=== PATIENT | female | born 1985 ===

== ENCOUNTER 2019-07-01 09:47 | Day surgery (SDC) | payer MEDICAID ==
[~2019-07-01 09:47] MED LIST: Lactated Ringers 1,000 ML IV SCH; Sodium Chloride 0.9% 10 ML SDV IV PRN; Sodium Chloride 0.9% 10 ML Syringe FLUSH PRN; Sodium Chloride 0.9% 2.5 ML Syringe FLUSH PRN
--- NOTE | 2019-07-01 11:11 | PCM.PREANE ---
Preanesthetic Assessment - Anesthesia/Transfusion/Family Hx Anesthesia History: Prior Anesthesia Without Reaction Other Type of Anesthesia Reaction Comment: Unkown if I had any trouble, no family history of known problems Family History of Anesthesia Reaction: No Transfusion History: No Prior Transfusion(s) - Review of Systems General: No Symptoms Pulmonary: No Symptoms Cardiovascular: No Symptoms Gastrointestinal: No Symptoms Neurological: No Symptoms Other: Reports: None - Physical Assessment Vital Signs: Last Vital Signs Temp 97.3 F 07/01/19 08:35 Pulse 104 H 07/01/19 08:35 Resp 15 07/01/19 08:35 BP 101/82 07/01/19 08:35 Pulse Ox 96 07/01/19 08:35 Height: 5 ft 8 in Weight: 68.492 kg ASA Class: 2 Mental Status: Alert & Oriented x3 Airway Class: Mallampati = 2 Dentition: Reports: Normal Dentition ROM/Head Extension: Full Lungs: Clear to Auscultation, Normal Respiratory Effort Cardiovascular: Regular Rate, Regular Rhythm - Lab Values: Laboratory Last Values Urine HCG, Qual NEGATIVE (NEGATIVE) 07/01/19 10:05 - Allergies Allergies/Adverse Reactions: Allergies Allergy/AdvReac Type Severity Reaction Status Date / Time adhesive tape Allergy Redness Verified 06/25/19 12:41 bee venom protein (honey bee) Allergy Shortness Verified 06/25/19 12:41 of Breath - Blood Blood Available: No - Anesthesia Plan Pre-Op Medication Ordered: None - Acknowledgements Anesthesia Type Planned: General Anesthesia Pt an Appropriate Candidate for the Planned Anesthesia: Yes Alternatives and Risks of Anesthesia Discussed w Pt/Guardian: Yes Pt/Guardian Understands and Agrees with Anesthesia Plan: Yes Additional Comments: PMH: anxiety, migraines, smoker PLAN: tiva PreAnesthesia Questionnaire HEENT History: Reports: Other (See Below) Other HEENT History: wears glasses/contacts Cardiovascular History: Reports: Blood Clots/VTE/DVT Other Cardiovascular History: states had blood clot to her leg during Respiratory History: Reports: None Gastrointestinal History: Reports: Chronic Diarrhea, Hemorrhoids Genitourinary History: Reports: None SPINAL SURGEON History: Reports: Musculoskeletal History: Reports: None Neurological History: Reports: Migraines, Other (See Below) Other Neuro History: head injury in the past Psychiatric History: Reports: Anxiety, Depression Endocrine/Metabolic History: Reports: None Hematologic History: Reports: None Immunologic History: Reports: None Oncologic (Cancer) History: Reports: None Dermatologic History: Reports: None - Past Surgical History Head Surgeries/Procedures: Reports: None HEENT Surgical History: Reports: Eye Surgery, Oral Surgery Cardiovascular Surgical History: Reports: None Respiratory Surgical History: Reports: None GI Surgical History: Reports: Cholecystectomy Female Surgical History: Reports: D&C Endocrine Surgical History: Reports: None Neurological Surgical History: Reports: None Musculoskeletal Surgical History: Reports: None Oncologic Surgical History: Reports: None - SUBSTANCE USE Smoking Status *Q: Current Every Day Smoker Tobacco Use Within Last Twelve Months: Cigarettes - HOME MEDS Home Medications: Home Meds Cholecalciferol (Vitamin D3) [Vitamin D3] 1 tab PO BID 06/25/19 [History] Cholestyramine/Sucrose [Cholestyramine] 2 packet PO DAILY 06/25/19 [History] Divalproex Sodium [Depakote] 250 mg PO BID 06/25/19 [History] Docusate Sodium 100 mg PO DAILY 06/25/19 [History] Hydrocortisone [Hydrocortisone 2.5% Crm] 1 applic TOP ASDIRECTED PRN 06/25/19 [ History] Multivitamin [Multivitamins] 1 tab PO DAILY 06/25/19 [History] Norgestimate-Ethinyl Estradiol [Norg-Ee 0.18-0.215-0.25/0.025] 1 tab PO DAILY [History] Omeprazole 20 mg PO DAILY 06/25/19 [History] SUMAtriptan Succinate [Imitrex] 100 mg PO ASDIRECTED PRN 06/25/19 [History] Sertraline HCl 100 mg PO DAILY 06/25/19 [History] buPROPion HCL [Bupropion HCl Sr] 150 mg PO DAILY 06/25/19 [History] - CURRENT (IN HOUSE) MEDS Current Meds: Current Medications Lactated Ringer's (Ringers, Lactated) 1,000 mls @ 125 mls/hr IV ASDIRECTED CATRINA Last Admin: 07/01/19 10:15 Dose: 125 mls/hr Sodium Chloride (Saline Flush) 10 ml FLUSH ASDIRECTED PRN PRN Reason: Keep Vein Open Sodium Chloride (Saline Flush) 2.5 ml FLUSH ASDIRECTED PRN PRN Reason: Keep Vein Open Sodium Chloride (Saline Flush) 10 ml FLUSH ASDIRECTED PRN PRN Reason: Keep Vein Open Sodium Chloride (Saline Flush) 2.5 ml FLUSH ASDIRECTED PRN PRN Reason: Keep Vein Open Sodium Chloride (Normal Saline) 10 ml IV ASDIRECTED PRN PRN Reason: IV Use
[2019-07-01] MEDS ORDERED: Midazolam 1 MG/ML 2 ML SDV ONE (12:33)
[2019-07-01] MEDS ORDERED: Propofol 200 MG/20 ML SDV ONE ×3 (12:33→13:40)
[2019-07-01] MEDS ORDERED: fentaNYL 100 MCG/2 ML SDV ONE (12:33)
--- NOTE | 2019-07-01 13:24 | PCM.POSTAN ---
POST ANESTHESIA ASSESSMENT - MENTAL STATUS Mental Status: Alert, Oriented - VITAL SIGNS Vital Signs: Last Vital Signs Temp 98.6 F 07/01/19 13:10 Pulse 71 07/01/19 13:21 Resp 18 07/01/19 13:21 BP 95/61 07/01/19 13:21 Pulse Ox 98 07/01/19 13:21 - RESPIRATORY Respiratory Status: Respiratory Rate WNL, Airway Patent, O2 Saturation Stable - CARDIOVASCULAR CV Status: Pulse Rate WNL, Blood Pressure Stable - GASTROINTESTINAL GI Status: No Symptoms - PAIN Pain Score: 0 - POST OP HYDRATION Hydration Status: Adequate & Stable
--- NOTE | 2019-07-01 13:58 | PCM48HPAN ---
Post Anesthesia Note - EVALUATION WITHIN 48HRS OF ANESTHETIC Vital Signs in Normal Range: Yes Patient Participated in Evaluation: Yes Respiratory Function Stable: Yes Airway Patent: Yes Cardiovascular Function Stable: Yes Hydration Status Stable: Yes Pain Control Satisfactory: Yes Nausea and Vomiting Control Satisfactory: Yes Mental Status Recovered: Yes Vital Signs: Last Vital Signs Temp 97.9 F 07/01/19 13:35 Pulse 74 07/01/19 13:35 Resp 15 07/01/19 13:35 BP 106/60 07/01/19 13:35 Pulse Ox 97 07/01/19 13:35
--- NOTE | 2019-07-02 15:58 | OR ---
SURGEON: GENIA SHARMA MD DATE OF PROCEDURE: 07/01/2019 PREOPERATIVE DIAGNOSES: Abdominal pain, diarrhea. POSTOPERATIVE DIAGNOSES: Abdominal pain, diarrhea, grade 3 hemorrhoid. PROCEDURES PERFORMED: Diagnostic esophagogastroduodenoscopy and colonoscopy. PRIMARY SURGEON: Genia Sharma MD. ANESTHESIA: MAC. INSTRUMENT USED: Olympus endoscope, colonoscope. EXTENT OF EXAM: To the second portion of the duodenum, to the cecum. PREPARATION: Good. LIMITATIONS: None. INDICATIONS FOR EXAMINATION: The patient is a 33-year-old female who presented to clinic with chronic abdominal pain associated with diarrhea. She also felt like she may have some hemorrhoids. The patient and I discussed the need for diagnostic EGD and colonoscopy. We discussed the procedures as well as the risks. The patient verbalized understanding and wishes to proceed. PROCEDURE IN DETAIL: The patient was brought into the endoscopy suite and placed in a left lateral decubitus position. A time-out was completed verifying the patient's name, age, date of , allergies, and procedure to be performed. A bite block was placed in the patient's mouth. Monitored anesthesia care was induced and continuous oxygen was provided via nasal cannula throughout the procedure. After adequate sedation was achieved, a well-lubricated endoscope was placed in the patient's mouth and advanced under direct visualization to the second portion of duodenum. This appeared normal and a photograph was taken. The scope was then fully withdrawn while examining the color, texture, anatomy, and integrity of the mucosa of the upper GI tract. The duodenum appeared normal. The scope was brought into the stomach and a photograph was taken of the pylorus and GE junction. Both were anatomically normal. The gastric mucosa was free of any gross inflammation or ulceration. Biopsies were taken of the gastric antrum, body, and fundus and sent for histologic review and H. pylori testing. The scope was then brought into the distal esophagus. This appeared normal and a photograph was taken. The remainder of the esophageal mucosa appeared normal. The scope was removed and this part of the procedure was terminated. A digital rectal exam was performed. The patient was noted to have a prolapsed left lateral hemorrhoid, however, this was easily reduced. A well-lubricated colonoscope was inserted in the rectum and advanced under direct visualization to the level of the cecum. The cecum was identified by both visual and anatomic landmarks. A photograph was taken of the cecal cap; however, I was unable to retroflex the scope within the cecum due to looping of the scope more proximally. The scope was then fully withdrawn while examining the color, texture, anatomy, and integrity of the mucosa from the cecum to the anal canal. The patient's colonic mucosa all appeared normal. Random biopsies were taken in the sigmoid colon and sent to pathology. The scope was brought into the rectum and retroflexed to allow visualization of the anal canal opening. Again, I noted enlarged hemorrhoidal tissue. The scope was straightened out and fully withdrawn. The cecum to anus time was 7 minutes. The patient tolerated the procedure well and was transferred to the PACU in stable condition. ENDOSCOPIC DIAGNOSES: Abdominal pain, diarrhea, grade 3 hemorrhoid. RECOMMENDATIONS: Follow up in clinic in 2 weeks. DERICK SCOTT /[id number]
== END 2019-07-01 14:15 | disposition home or self-care (01) ==
LOC: MW.SDS 09:47
PROVIDERS: ATTEND Surgery
DX: K29.50 Unspecified chronic gastritis without bleeding (principal); K20.9 Esophagitis, unspecified; R19.7 Diarrhea, unspecified; K64.2 Third degree hemorrhoids; F41.9 Anxiety disorder, unspecified; F32.9 Major depressive disorder, single episode, unspecified; G43.909 Migraine, unspecified, not intractable, without status migrainosus; F17.210 Nicotine dependence, cigarettes, uncomplicated; Z91.030 Bee allergy status; Z91.048 Other nonmedicinal substance allergy status; Z79.899 Other long term (current) drug therapy
CPT/HCPCS: 43239; 45380; 81025; J2250; J2704; J3010; J7120; 00813; 88305; 88312

== ENCOUNTER 2019-09-23 06:34 | Day surgery (SDC) | payer MEDICAID ==
[~2019-09-23 06:34] MED LIST changes: +cefOXitin 2 GM in Premix Bag 1 BAG IV ONE
[2019-09-23] MEDS ORDERED: Propofol 200 MG/20 ML SDV ONE (06:57)
[2019-09-23] MEDS ORDERED: fentaNYL 100 MCG/2 ML SDV ONE (06:57)
[2019-09-23] MEDS ORDERED: Midazolam 1 MG/ML 2 ML SDV ONE (06:57)
[2019-09-23] MEDS ORDERED: Lidocaine 2% 5 ML SDV ONE (06:57)
--- NOTE | 2019-09-23 07:08 | PCM.PREANE ---
Preanesthetic Assessment - Anesthesia/Transfusion/Family Hx Anesthesia History: Prior Anesthesia Without Reaction Other Type of Anesthesia Reaction Comment: Unkown if I had any trouble, no family history of known problems Family History of Anesthesia Reaction: No Transfusion History: No Prior Transfusion(s) Intubation History: Unknown - Review of Systems General: No Symptoms Pulmonary: No Symptoms Cardiovascular: No Symptoms Gastrointestinal: No Symptoms Neurological: No Symptoms Other: Reports: None - Physical Assessment Height: 5 ft 8 in Weight: 70.307 kg ASA Class: 2 Mental Status: Alert & Oriented x3 Airway Class: Mallampati = 3 Thyro-Mental Finger Breadths: 3 Mouth Opening Finger Breadths: 2 ROM/Head Extension: Full Lungs: Clear to Auscultation, Normal Respiratory Effort Cardiovascular: Regular Rate, Regular Rhythm - Lab Values: Laboratory Last Values Urine HCG, Qual NEGATIVE (NEGATIVE) 09/23/19 06:40 - Allergies Allergies/Adverse Reactions: Allergies Allergy/AdvReac Type Severity Reaction Status Date / Time adhesive tape Allergy Redness Verified 09/16/19 12:07 bee venom protein (honey bee) Allergy Shortness Verified 09/16/19 12:07 of Breath - Blood Blood Available: No - Anesthesia Plan Pre-Op Medication Ordered: None - Acknowledgements Anesthesia Type Planned: General Anesthesia Pt an Appropriate Candidate for the Planned Anesthesia: Yes Alternatives and Risks of Anesthesia Discussed w Pt/Guardian: Yes Pt/Guardian Understands and Agrees with Anesthesia Plan: Yes PreAnesthesia Questionnaire HEENT History: Reports: Other (See Below) Other HEENT History: wears glasses/contacts Cardiovascular History: Reports: Blood Clots/VTE/DVT Other Cardiovascular History: states had blood clot to her leg during Respiratory History: Reports: None Gastrointestinal History: Reports: Chronic Diarrhea, GERD, Hemorrhoids, Irritable Bowel Syndrome Genitourinary History: Reports: Renal Calculus DI[employer]OND CLEANER History: Reports: Musculoskeletal History: Reports: None Neurological History: Reports: Head Trauma, Migraines, Other (See Below) Other Neuro History: 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 (washer fell on top of her)- some memory loss still present Psychiatric History: Reports: Anxiety, Depression Endocrine/Metabolic History: Reports: None Hematologic History: Reports: None Immunologic History: Reports: None Oncologic (Cancer) History: Reports: None Dermatologic History: Reports: None - Past Surgical History Head Surgeries/Procedures: Reports: None HEENT Surgical History: Reports: Eye Surgery, Oral Surgery Other HEENT Surgeries/Procedures: wisdom teeth Cardiovascular Surgical History: Reports: None Respiratory Surgical History: Reports: None GI Surgical History: Reports: Cholecystectomy, Colonoscopy Female Surgical History: Reports: D&C Endocrine Surgical History: Reports: None Neurological Surgical History: Reports: None Musculoskeletal Surgical History: Reports: None Oncologic Surgical History: Reports: None - SUBSTANCE USE Smoking Status *Q: Current Every Day Smoker Tobacco Use Within Last Twelve Months: Cigarettes Recreational Drug Use History: No - HOME MEDS Home Medications: Home Meds Cholecalciferol (Vitamin D3) [Vitamin D3] 1 tab PO BID 06/25/19 [History] Cholestyramine/Sucrose [Cholestyramine] 2 packet PO DAILY 06/25/19 [History] Divalproex Sodium [Depakote] 250 mg PO BID 06/25/19 [History] Docusate Sodium 100 mg PO DAILY 06/25/19 [History] Hydrocortisone [Hydrocortisone 2.5% Crm] 1 applic TOP ASDIRECTED PRN 06/25/19 [ History] Multivitamin [Multivitamins] 1 tab PO DAILY 06/25/19 [History] Omeprazole 20 mg PO DAILY 06/25/19 [History] SUMAtriptan succinate [Imitrex] 100 mg PO ASDIRECTED PRN 06/25/19 [History] Sertraline HCl 100 mg PO DAILY 06/25/19 [History] buPROPion HCL [Bupropion HCl Sr] 150 mg PO DAILY 06/25/19 [History] norgestimate-ethinyl estradioL [Norg-Ee 0.18-0.215-0.25/0.025] 1 tab PO DAILY [History] - CURRENT (IN HOUSE) MEDS Current Meds: Current Medications Lactated Ringer's (Ringers, Lactated) 1,000 mls @ 125 mls/hr IV ASDIRECTED CATRINA Sodium Chloride (Saline Flush) 10 ml FLUSH ASDIRECTED PRN PRN Reason: Keep Vein Open Sodium Chloride (Saline Flush) 2.5 ml FLUSH ASDIRECTED PRN PRN Reason: Keep Vein Open Sodium Chloride (Normal Saline) 10 ml IV ASDIRECTED PRN PRN Reason: IV Use Discontinued Medications Fentanyl (Sublimaze) Confirm Administered Dose 100 mcg .ROUTE .STK-MED ONE Stop: 09/23/19 06:58 Cefoxitin Sodium 2 gm/ Premix 50 mls @ 100 mls/hr IV ONETIME ONE Stop: 09/22/19 09:53 Lidocaine (Xylocaine-Mpf 2%) Confirm Administered Dose 5 ml .ROUTE .STK-MED ONE Stop: 09/23/19 06:58 Midazolam HCl (Versed 1 Mg/Ml) Confirm Administered Dose 2 mg .ROUTE .STK-MED ONE Stop: 09/23/19 06:58 Propofol (Diprivan 20 Ml) Confirm Administered Dose 400 mg .ROUTE .STK-MED ONE Stop: 09/23/19 06:58
[2019-09-23] MEDS ORDERED: Rocuronium 100 MG/10 ML Syringe ONE (07:12)
[2019-09-23] MEDS ORDERED: Succinylcholine/Sod PF 100 MG/5 ML SYRINGE IV ONE (07:12)
[2019-09-23] MEDS ORDERED: Bupivacaine 0.5% 30 ML SDV ONE (07:15)
[2019-09-23] MEDS ORDERED: Lidocaine 2% Jelly 30 ML Tube ONE (07:16)
[2019-09-23] MEDS ORDERED: Sodium Chloride 0.9% 0 ML ONE (07:59)
[2019-09-23] MEDS ORDERED: cefOXitin 1 GM Vial ONE (07:59)
[2019-09-23] MEDS ORDERED: Sugammadex Sodium 200 MG/2 ML VIAL ONE (08:02)
[2019-09-23] MEDS ORDERED: Ondansetron 4 MG/2 ML SDV ONE (08:10)
[2019-09-23] MEDS ORDERED: diphenhydrAMINE 50 MG/ML SDV ONE (08:14)
--- NOTE | 2019-09-23 08:33 | PCM.OPNOTE ---
- General Post-Op/Procedure Note Date of Surgery/Procedure: 09/23/19 Operative Procedure(s): Exam under anesthesia Findings: Enlarged right anterior, right posterior, and left lateral hemorrhoidal columns that are prolapsed and non-reducible but do not appear acutely thrombosed, inflamed or bleeding. Large posterior midline anal fissure. Pre Op Diagnosis: Perianal pain, grade IV hemorrhoids Post-Op Diagnosis: Anal fissure, grade IV hemorrhoids Anesthesia Technique: General ET Tube Primary Surgeon: Genia Sharma Fluid Replacement, Intraop: 1,000 EBL in mLs: 0 Condition: Good
[2019-09-23] MEDS ORDERED: fentaNYL 100 MCG/2 ML SDV IVPUSH PRN (08:48)
--- NOTE | 2019-09-23 09:23 | PCM.POSTAN ---
POST ANESTHESIA ASSESSMENT - MENTAL STATUS Mental Status: Alert, Oriented - VITAL SIGNS Vital Signs: Last Vital Signs Temp 36 C L 09/23/19 08:18 Pulse 73 09/23/19 09:18 Resp 15 09/23/19 09:18 BP 98/39 L 09/23/19 09:18 Pulse Ox 97 09/23/19 09:18 - RESPIRATORY Respiratory Status: Respiratory Rate WNL, Airway Patent, O2 Saturation Stable - CARDIOVASCULAR CV Status: Pulse Rate WNL, Blood Pressure Stable - GASTROINTESTINAL GI Status: No Symptoms - PAIN Pain Score: 2 - POST OP HYDRATION Hydration Status: Adequate & Stable - OBSERVATIONS Free Text/Narrative:: No anesthesia problems.
--- NOTE | 2019-09-23 10:25 | PCM48HPAN ---
Post Anesthesia Note - EVALUATION WITHIN 48HRS OF ANESTHETIC Vital Signs in Normal Range: Yes Patient Participated in Evaluation: Yes Respiratory Function Stable: Yes Airway Patent: Yes Cardiovascular Function Stable: Yes Hydration Status Stable: Yes Pain Control Satisfactory: Yes Nausea and Vomiting Control Satisfactory: Yes Mental Status Recovered: Yes Vital Signs: Last Vital Signs Temp 36 C L 09/23/19 08:18 Pulse 73 09/23/19 09:18 Resp 15 09/23/19 09:18 BP 98/39 L 09/23/19 09:18 Pulse Ox 97 09/23/19 09:18 - COMMENTS/OBSERVATIONS Free Text/Narrative:: No anesthesia problems.
--- NOTE | 2019-09-23 13:35 | OR ---
SURGEON: GENIA SHARMA MD DATE OF PROCEDURE: 09/23/2019 PREOPERATIVE DIAGNOSIS: Perianal pain, grade 4 hemorrhoids. POSTOPERATIVE DIAGNOSIS: Anal fissure, grade 4 hemorrhoids. PROCEDURE PERFORMED: Exam under anesthesia. PRIMARY SURGEON: Genia Sharma MD. ANESTHESIA: General endotracheal anesthesia. FLUIDS: 1000 mL crystalloid. ESTIMATED BLOOD LOSS: 0. FINDINGS: Enlarged right anterior, right posterior, and left lateral hemorrhoidal columns consistent with grade 4 hemorrhoids. These hemorrhoids do not appear acutely thrombosed, inflamed, or bleeding. Large posterior midline anal fissure. COMPLICATIONS: None. INDICATIONS: The patient is a 34-year-old female, who recently presented to my office with perianal pain. She had recently undergone a diagnostic colonoscopy for change in bowel habits. At that time, she was noted to have enlarged grade 4 hemorrhoids, but no other pathology. In clinic, the patient was extremely tender and I was unable to adequately perform an exam. I did not see acutely thrombosed or inflammed hemorrhoids. We discussed our options. I explained to the patient that I would take her back to the operating room for an exam under anesthesia with possible hemorrhoidectomy depending on my findings. I explained to the patient that I felt her symptoms were consistent with an anal fissure and if I found a large anal fissure, we would not proceed with a hemorrhoidectomy. If the anal mucosa appeared normal, then I would perform the hemorrhoidectomy. I explained the procedure; expected perioperative course; and risks including bleeding, infection, or damage to surrounding structures. She verbalized understanding and wished to proceed. PROCEDURE IN DETAIL: The patient was brought into the OR and placed on the OR cart in supine position. A time-out was completed verifying the patient's name, age, date of , allergies, and procedure to be performed. General endotracheal anesthesia was induced. The patient was then placed in a prone position making sure to adequately pad and protect all bony surfaces. While we were positioning the patient, I examined the anoderm. The patient was noted to have 3 enlarged hemorrhoidal columns; the right anterior, right posterior, and left lateral hemorrhoidal columns. These were prolapsed and nonreducible, but had no evidence of any recent bleeding and they did not appear inflamed or acutely thrombosed. However, what I did notice was a large posterior midline anal fissure. The remainder of her ALICE was normal. Given this finding, the decision was made to cancel the remainder of the procedure. The patient was placed back on the OR cart in supine position and extubated. She was taken to the PACU in stable condition. DERICK SCOTT /[id number] MTDD
== END 2019-09-23 10:35 | disposition home or self-care (01) ==
LOC: MW.SDS 06:34
PROVIDERS: ATTEND Surgery
DX: K64.3 Fourth degree hemorrhoids (principal); K60.2 Anal fissure, unspecified; R19.4 Change in bowel habit; F41.9 Anxiety disorder, unspecified; F32.9 Major depressive disorder, single episode, unspecified; F17.210 Nicotine dependence, cigarettes, uncomplicated; Z91.030 Bee allergy status; Z91.048 Other nonmedicinal substance allergy status; Z79.899 Other long term (current) drug therapy
CPT/HCPCS: 46260; 81025; J0330; J1200; J2001; J2250; J2405; J2704; J3010; J3490; J7120; 00902; J0694